=== PATIENT | male | born 1985 | race Caucasian/White ===

== ENCOUNTER 2020-01-15 07:29 | Outpatient (CLI) | payer BC ==
[2020-01-15 10:16] LABS: #Basophils 0.1 thou/uL (0.0-0.2); #Eosinphils 0.2 thou/uL (0.0-0.7); #Monocytes 0.7 thou/uL (0.11-0.59); #Neutrophils 4.8 thou/uL (1.40-6.50); %Basophils 0.8 % (0.0-1.0); %Eosinophils 2.4 % (0.0-10.0); %Lymphocytes 33.9 % (21.0-51.0); %Neutrophils 54.9 % (42.0-75.0); Hemoglobin 14.5 g/dL (14.0-18.0); Mean Corpuscular HGB CONC 33.8 g/dL (32.0-36.0); Mean Corpuscular Hemoglobin 29.5 pg (27.0-31.0); Mean Corpuscular Volume 87.4 fL (78.0-98.0); Mean Platelet Volume 7.6 fL (7.4-10.4); Platelet Count 233 thou/uL (130-400); RBC Distribution Width 12.3 % (11.5-14.5); Red Blood Cell (RBC) Count 4.92 mill/uL (4.70-6.10); White Blood Cell (WBC) Count 8.8 thou/uL (4.8-10.8)
[2020-01-15 10:37] LABS: Anion Gap 15 mmol/L (10-20); BUN (Urea Nitrogen) 19 mg/dL (8.9-20.6); Calc. Creatinine Clearance 0 mL/min (70-130); Calcium 9.6 mg/dL (7.8-10.44); Carbon Dioxide 24 mmol/L (22-29); Chloride 105 mmol/L (98-107); Estimated GFR-MDRD 90; Glucose 96 mg/dL (70-105); Potassium 4.5 mmol/L (3.5-5.1); Sodium 139 mmol/L (136-145)
== END 2020-01-15 07:30 | disposition home or self-care (01) ==
LOC: LABBT 07:29
PROVIDERS: ATTEND Surgery
DX: Z01.818 Encounter for other preprocedural examination (principal); K40.90 Unilateral inguinal hernia, without obstruction or gangrene, not specified as recurrent
CPT/HCPCS: 80048; 85025; 93005; 93010

== ENCOUNTER 2020-01-21 06:55 | Day surgery (SDC) | payer BC ==
[2020-01-15 09:38] VITALS: BMI 26.2
[2020-01-21] MEDS ORDERED: Bupivacaine PF 0.5% 30 ML VIAL ONE (09:06)
[2020-01-21] MEDS ORDERED: Lidocaine 1% w/Epinephrine 1:100K 20 ML VIAL ONE (09:06)
[2020-01-21] MEDS ORDERED: Fentanyl 100 MCG/2 ML VIAL ONE ×4 (09:21→11:34)
[2020-01-21] MEDS ORDERED: Midazolam HCl 2 mg/2 ml Vial ONE (09:21)
[2020-01-21] MEDS ORDERED: Lidocaine 1% PF 5 ML VIAL ONE (10:47)
[2020-01-21] MEDS ORDERED: Ondansetron PF 4 MG/2 ML Vial ONE (10:47)
[2020-01-21] MEDS ORDERED: Glycopyrrolate 0.2 MG/ML 5 ML SYRINGE ONE (10:47)
[2020-01-21] MEDS ORDERED: PROPOFOL 200 MG/20 ML VIAL ONE (10:47)
[2020-01-21] MEDS ORDERED: Dexamethasone 20 MG/5 ML VIAL ONE (10:47)
[2020-01-21] MEDS ORDERED: Rocuronium Bromide 10 MG/ML (10ML VIAL) ONE (10:47)
[2020-01-21] MEDS ORDERED: Meperidine HCl/PF 25 MG/ML VIAL ONE (11:03)
[2020-01-21] MEDS ORDERED: HYDROcodone/Acetaminophen 5/325 mg Tablet ONE (11:35)
[2020-01-21] MEDS ORDERED: Morphine 4 MG/ML VIAL ONE (12:28)
[2020-01-21] MEDS ORDERED: Promethazine HCl 25 MG/ML VIAL ONE (12:28)
[2020-01-21] MEDS ORDERED: Lidocaine 2% Jelly 5 ML TUBE ONE (15:12)
--- NOTE | 2020-01-22 11:37 | OP ---
DATE OF PROCEDURE: 01/21/2020 PREOPERATIVE DIAGNOSIS: Left inguinal hernia. POSTOPERATIVE DIAGNOSIS: Left inguinal hernia. PROCEDURE PERFORMED: [facility] laparoscopic left inguinal hernia repair with mesh, 3DMax large. ANESTHESIA: General. ESTIMATED BLOOD LOSS: Minimal. COMPLICATIONS: None. SPECIMEN: None. FINDING: Left inguinal hernia. DESCRIPTION OF PROCEDURE: The patient was taken to the operating room and laid supine on the operating room table. After general anesthetic was obtained, Nagy was placed. The abdomen was shaved, prepped, and draped in a sterile fashion. A curved incision was made above the umbilicus, cautery dissected down to and score the fascia. Abdominal cavity entered bluntly using a Minna clamp. An 11-mm balloon trocar was placed. High-flow pneumoperitoneum was obtained. Left and right abdominal 8-mm robot trocars were placed. All ports were docked to the robot. Surgeon goes to the console. The peritoneum was taken down in the left groin exposing the inguinal hernia. The preperitoneal space was bluntly dissected to pubic tubercle medially and to the anterior superior iliac crest laterally. The shelving edge of inguinal ligament was fully exposed. The indirect hernia was dissected back high up on to the peritoneum. There was no direct defect. The 3DMax large mesh was brought into the sterile field. The M-labeled medial aspect was placed over the pubic tubercle medially and laid out to cover the indirect, direct and femoral areas. A 2-0 Vicryl was used to sew the mesh to pubic tubercle medially to the posterior fascia laterally. 3-0 Stratafix was used to reapproximate and to close the peritoneum. All needles were removed from the abdomen and accounted for. All port sites were infiltrated using local anesthetic. All ports were removed under camera visualization. Pneumoperitoneum was let down. PDS was used to close the fascial defect below the umbilicus. All incisions were irrigated and closed using 4-0 Monocryl and Dermabond. The patient was sent to Recovery in stable condition. All instrument counts, needle counts, and lap counts are correct. Job ID: [id number]
== END 2020-01-21 16:15 | disposition home or self-care (01) ==
LOC: SDC 06:55
PROVIDERS: ATTEND Surgery
PROC: 0YU64JZ Supplement Left Inguinal Region with Synthetic Substitute, Percutaneous Endoscopic Approach (ICD-10-PCS; principal; 2020-01-21)
DX: K40.90 Unilateral inguinal hernia, without obstruction or gangrene, not specified as recurrent (principal); L70.9 Acne, unspecified
CPT/HCPCS: C1781; J0690; J1100; J2001; J2175; J2250; J2270; J2405; J2550; J2704; J3010; S0020

== ENCOUNTER 2023-03-22 09:46 | Outpatient (CLI) | payer BC | END 2023-03-22 09:47 | disposition home or self-care (01) | LOC: BICRAD 09:46 | PROVIDERS: ATTEND Nurse Practitioner Family | DX: R05.3 Chronic cough (principal) | CPT/HCPCS: 71046 ==